=== PATIENT | male | born 1990 | race Caucasian/White ===

== ENCOUNTER 2024-10-06 09:57 | Emergency (ER) | payer SELFPAY ==
[~2024-10-06] VITALS: Ht 193 cm; Wt 81.6 kg
[2024-10-06 10:32] LABS: BASO% 0.9 % (0-3); EOS% 3.5 % (0-8); HEMATOCRIT 46.4 % (39.0-50.0); HEMOGLOBIN 15.4 g/dl (14.0-18.0); IMMATURE GRANULOCYTES 0.2 % (0.0-5.0); MEAN CORPUSCULAR HGB 30.3 pG CALC (26.0-32.0); MEAN CORPUSCULAR HGB CONC 33.2 g/dL CAL (32.0-36.0); MONO% 11.1 % (2-13); NEUT# 2.36 thou/uL (1.82-7.42); NEUT% 51.3 % (42-76); RED BLOOD COUNT 5.08 mill/uL (4.70-6.10); RED CELL DISTRI WIDTH 12.3 % (11.5-15.5)
[2024-10-06 10:33] LABS: MEAN CELL VOLUME 91.3 fL CALC (80.0-100.0)
[2024-10-06 10:48] LABS: ALBUMIN 4.8 g/dL (3.2-5.0); BUN 7 mg/dL (9-20); BUN/CREATININE RATIO 7 (12-20 (CALC)); CARBON DIOXIDE 26 mmol/l (22-30); CHLORIDE 103 mmol/l (95-108); ESTIMATED GFR 102 ML/MIN (>=90 (CALC)); SGOT/AST 25 u/l (17-59); SODIUM 138 mmol/l (137-146); TOTAL PROTEIN 7.7 g/dL (6.3-8.2)
[2024-10-06 10:52] LABS: ALKALINE PHOSPHATASE 60 u/l (38-126); ANION GAP 13 (6-22 (CALC)); POTASSIUM 3.9 mmol/l (3.5-5.1)
[2024-10-06] MEDS ORDERED: ONDANSETRON HCl 4 MG/2 ML SDV IV ONE (12:05)
[2024-10-06] MEDS ORDERED: MORPHINE SULFATE 4 MG/ML VIAL IV ONE (12:05)
[2024-10-06 14:40] VITALS: BP 113/74
[2024-10-14] MEDS ORDERED: NAPROXEN500 MG PO ×2 (08:10→08:11)
== END 2024-10-06 14:44 | disposition home or self-care (01) | DRG 313 ==
LOC: ED 09:57
PROVIDERS: Family Medicine
DX: R07.9 Chest pain, unspecified (principal); F41.9 Anxiety disorder, unspecified
CPT/HCPCS: J2405; Q9967